=== PATIENT | male | born 1990 | race African-American/Black ===

== ENCOUNTER 2018-07-04 22:07 | Emergency (ER) | payer MEDICAID ==
[~2018-07-04] VITALS: Ht 167.6 cm; Wt 77.1 kg
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
--- NOTE | 2018-07-04 22:28 | NUR ---
ED Nurse Note: [employer] are on bedside taking report.
[2018-07-04] MEDS ORDERED: IBUPROFEN600 MG ORAL (22:56)
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
--- NOTE | 2018-07-04 23:00 | NUR ---
ED Nurse Note: Pt refused to sign homeless discharge consent.
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
[2018-07-04 23:23] VITALS: BP 131/80
== END 2018-07-04 23:31 | disposition home or self-care (01) ==
LOC: EDBD 22:07 → EMR 22:30
DX: M79.652 Pain in left thigh (principal); M79.651 Pain in right thigh; V03.90XA Pedestrian on foot injured in collision with car, pick-up truck or van, unspecified whether traffic or nontraffic accident, initial encounter; Y92.410 Unspecified street and highway as the place of occurrence of the external cause; S89.92XA Unspecified injury of left lower leg, initial encounter; S89.91XA Unspecified injury of right lower leg, initial encounter
CPT/HCPCS: 99283